=== PATIENT | male | born 1965 | race Asian ===

== ENCOUNTER 2018-09-18 11:29 | Emergency (ER) | payer SELFPAY ==
[~2018-09-18] VITALS: Ht 180.3 cm; Wt 88.5 kg
[2018-09-18 11:36] VITALS: BP 130/74
[2018-09-18] MEDS: LIDOCAINE 1% HCL (LOCAL ANESTH.) INJ 20ML MDV IJ ONE (12:06)
[2018-09-18] MEDS: LIDOCAINE 1%HCL (LOCAL ANESTH) 10 ML MDV ONE (12:06)
[2018-09-18] MEDS: TETANUS-DIPTH-ACEL PERTUSSIS 0.5ML SYRG IM ONE (12:15)
== END 2018-09-18 12:19 | disposition home or self-care (01) ==
LOC: ER 11:29
DX: S61.412A Laceration without foreign body of left hand, initial encounter (principal); W26.0XXA Contact with knife, initial encounter; Y93.89 Activity, other specified; Y99.8 Other external cause status; Y92.89 Other specified places as the place of occurrence of the external cause
CPT/HCPCS: 12002; 90471; 90715; 99283; J2001

== ENCOUNTER 2018-09-30 14:01 | Emergency (ER) | payer MEDICAID, OTHER ==
[~2018-09-30] VITALS: Ht 180.3 cm; Wt 89.4 kg
[2018-09-30 14:50] VITALS: BP 125/82
[2018-09-30] MEDS: IBUPROFEN 800 MG TAB PO ONE (15:39)
== END 2018-09-30 16:33 | disposition home or self-care (01) ==
LOC: ER 14:03
DX: S61.412D Laceration without foreign body of left hand, subsequent encounter (principal); W45.8XXD Other foreign body or object entering through skin, subsequent encounter
CPT/HCPCS: 73130

== ENCOUNTER 2018-10-25 16:31 | Emergency (ER) | payer MEDICAID ==
[~2018-10-25] VITALS: Ht 180.3 cm; Wt 86.2 kg
[2018-10-25 19:42] VITALS: BP 119/75
[2018-10-25] MEDS ORDERED: AMOXICILLIN/CLAVUL 875 MG TAB PO ONE (20:00)
[2018-10-25] MEDS ORDERED: cefTRIAXone SOD 1,000 MG VL IM ONE (20:00)
[2018-10-25] MEDS ORDERED: HYDROcodone-ACET 10/325MG TAB PO ONE (20:00)
[2018-10-25] MEDS ORDERED: LIDOCAINE 1% HCL (LOCAL ANESTH.) INJ 20ML MDV ONE (20:12)
== END 2018-10-25 21:07 | disposition home or self-care (01) ==
LOC: ER 16:31
DX: T81.30XA Disruption of wound, unspecified, initial encounter (principal); M79.642 Pain in left hand
CPT/HCPCS: 73200; 96372; 99284; J0696; J2001